=== PATIENT | female | born 1955 | race Caucasian/White ===

== ENCOUNTER 2016-10-11 13:20 | Emergency (ER) | payer MEDICARE, OTHER ==
[2016-10-11 13:21] VITALS: BMI 28.5
[2016-10-11 13:30] VITALS: BP 167/95; PULSE 87; RESP 20; TEMP 97.8; O2SAT 96
[2016-10-11] MEDS ORDERED: Lidocaine 5% Patch TD STA (13:49)
[2016-10-11] MEDS ORDERED: Lidocaine 5% Patch TD ONE (13:56)
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
== END 2016-10-11 14:35 | disposition home or self-care (01) ==
LOC: C.ER 13:20
DX: M54.5 Low back pain (principal); R07.89 Other chest pain; V43.62XA Car passenger injured in collision with other type car in traffic accident, initial encounter; Y92.410 Unspecified street and highway as the place of occurrence of the external cause
CPT/HCPCS: 71020; 72100; 96372; 99283; J1885

== ENCOUNTER 2017-02-28 01:37 | Emergency (ER) | payer MEDICARE, OTHER ==
[2017-02-28 01:37] VITALS: BMI 28.5
--- NOTE | 2017-02-28 01:58 | C.PDOC ---
History Of Present Illness patient states she felt her blood pressure was elevated , and wanted to be checked. No cp, palpitations, mild headache. 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 Speaking in complete sentences Time Seen by Provider: 02/28/17 01:58 Chief Complaint (Nursing): High Blood Pressure History/Exam Limitations: no limitations Onset/Duration Of Symptoms: Mins Current Symptoms Are (Timing): Better Associated Symptoms: denies: Chest Pain, Dyspnea Quality Of Symptoms: Asymptomatic Severity: Mild Pain Scale Rating Of: 2 Exacerbating Factor(s): Pos: None Recent travel outside of the [place]: No Additional History Per: Patient Past Medical History Reviewed: Historical Data, Nursing Documentation, Vital Signs Vital Signs: Last Vital Signs Temp 98.5 F 02/28/17 01:47 Pulse 86 02/28/17 02:14 Resp 18 02/28/17 02:14 BP 165/89 H 02/28/17 02:14 Pulse Ox 98 02/28/17 02:29 - Medical History PMH: Anxiety, Arthritis, Asthma, Gastritis, HTN, Hypercholesterolemia Denies: Chronic Kidney Disease Surgical History: Appendectomy Family History: States: No Known Family Hx, Unknown Family Hx - Social History Hx Tobacco Use: No Hx Alcohol Use: No Hx Substance Use: No - Immunization History Hx Tetanus Toxoid Vaccination: Yes Hx Influenza Vaccination: Yes Hx Pneumococcal Vaccination: Yes Review Of Systems Constitutional: Negative for: Fever, Chills Eyes: Negative for: Redness ENT: Negative for: Throat Pain Cardiovascular: Negative for: Chest Pain Respiratory: Negative for: Shortness of Breath Gastrointestinal: Negative for: Nausea, Vomiting Genitourinary: Negative for: Dysuria Musculoskeletal: Negative for: Back Pain Skin: Negative for: Rash Neurological: Positive for: Headache. Negative for: Weakness Psych: Negative for: Anxiety Physical Exam - Physical Exam Appears: Non-toxic, No Acute Distress Skin: Warm, Dry Head: Normacephalic Eye(s): bilateral: Normal Inspection Oral Mucosa: Moist Neck: Supple Chest: Symmetrical Cardiovascular: Rhythm Regular (dextrocaria) Respiratory: No Rales, No Rhonchi, No Wheezing Gastrointestinal/Abdominal: Soft, No Tenderness, No Distention Back: No CVA Tenderness Extremity: Normal ROM Extremity: Bilateral: Atraumatic Pulses: Left Dorsalis Pedis: Normal, Right Dorsalis Pedis: Normal Neurological/Psych: Oriented x3, Normal Speech, Normal Cognition Gait: Steady ED Course And Treatment - Laboratory Results Result Diagrams: 02/28/17 02:37 ECG: Interpreted By Me, Viewed By Me ECG Rhythm: Sinus Rhythm (79), R BBB, Nonspecific Changes O2 Sat by Pulse Oximetry: 98 Pulse Ox Interpretation: Normal - Radiology CXR: Interpreted by Me, Viewed By Me CXR Interpretation: No: Infiltrates, Fracture, Pnemothorax (dextrocaria) NIHSS Stroke Scale - Date/Time Evaluation Performed Date Performed: 02/28/17 Time Performed: 01:55 When Was NIHSS Performed: Baseline - How Severe is the Stoke Level of Consciousness: 0=Alert LOC to Questions: 0=Both comments correct LOC to commands: 0=Obeys both correctly Best Gaze: 0=Normal Visual: 0=No visual loss Facial: 0=Normal Motor Arm - Left: 0=No drift Motor Arm - Right: 0=No drift Motor Leg - Left: 0=No drift Motor Leg - Right: 0=No drift Limb Ataxia: 0=Absent Sensory: 0=Normal Best Language: 0=No aphasia Dysarthia: 0=Normal articulation Extinction & Inattention (Neglect): 0=Normal, no object Score: 0 Severity Of Stroke: 0= No Stroke Disposition Counseled Patient/Family Regarding: Studies Performed, Diagnosis, Need For Followup - Disposition Referrals: Tatiana Ash MD [Medical Doctor] - Disposition: HOME/ ROUTINE Disposition Time: 01:58 Condition: FAIR Additional Instructions: Please return if symptoms recur Instructions: Acute Headache (DC), Hypertension (DC) Forms: [employer]: [employer] (Bengali) Print Language: PANAMANIAN - Clinical Impression Clinical Impression: Hypertension, Headache
[2017-02-28 02:28] VITALS: O2SAT 98
[2017-02-28 02:42] LABS: BASO # 0.1 K/uL (0.0-0.2); EOS # 0.1 K/uL (0.0-0.7); EOS % 0.6 % (0.0-4.0); HEMATOCRIT 42.9 % (34.0-47.0); LYMPH # 2.6 K/uL (1.0-4.3); LYMPH % 23.6 % (20.0-40.0); MEAN CELL VOLUME 85.6 fL (81.0-99.0); MEAN CORPUSCULAR HEMOGLOBIN 28.3 pg (27.0-31.0); MEAN CORPUSCULAR HGB CONC 33.1 g/dL (33.0-37.0); MEAN PLATELET VOLUME 9.4 fL (7.2-11.7); MONO # 0.6 K/uL (0.0-0.8); MONO % 5.4 % (0.0-10.0); RED CELL DISTRIBUTION WIDTH 13.3 % (11.5-14.5); WHITE BLOOD COUNT 10.9 K/uL (4.8-10.8)
[2017-02-28 03:01] LABS: CHLORIDE 98 mmol/L (98-107)
[2017-02-28 03:02] LABS: SODIUM 137 mmol/L (132-148)
[2017-02-28 03:04] LABS: ALB/GLOB RATIO 1.1 (1.0-2.1); ALKALINE PHOSPHATASE 74 U/L (38-126); ALT/SGPT 45 U/L (9-52); AST/SGOT 30 U/L (14-36); BILIRUBIN,TOTAL 0.8 mg/dL (0.2-1.3); BLOOD UREA NITROGEN 25 mg/dL (7-17); CARBON DIOXIDE 23 mmol/L (22-30); GFR AFRICAN-AMERICAN > 60; TOTAL PROTEIN 7.8 g/dL (6.3-8.3)
[2017-02-28 03:05] LABS: CALCIUM 9.3 mg/dl (8.6-10.4); GLUCOSE,RANDOM 141 mg/dL (65-105)
[2017-02-28 05:32] VITALS: BP 149/89; PULSE 89; RESP 20; TEMP 98
--- NOTE | 2017-02-28 08:12 | RAD ---
HISTORY: hypertension, r/o pulm. path COMPARISON: Comparison is made to 10/11/2016 FINDINGS: LUNGS: Small opacities at the lung bases likely atelectasis. Mild pulmonary vascular congestion is also noted. PLEURA: No significant pleural effusion identified, no pneumothorax apparent. CARDIOVASCULAR: Dextrocardia is again noted. OSSEOUS STRUCTURES: No significant abnormalities. VISUALIZED UPPER ABDOMEN: Normal. OTHER FINDINGS: None. IMPRESSION: Small opacities at the lung bases may represent atelectasis. Mild pulmonary vascular congestion is noted. Otherwise no interval change.
--- NOTE | 2017-03-01 15:53 | CARD ---
APPROVED REPORT EKG Measurement Heart [id number] MN 152P [id number] <Conclusion> Probable reversal of limb leads. Please repeat
== END 2017-02-28 05:29 | disposition home or self-care (01) ==
LOC: SUPCPDRO 01:37 → C.ER 01:37
DX: I10 Essential (primary) hypertension (principal); R51 Headache
CPT/HCPCS: 71010; 80053; 84484; 85025; 93005; 96374; 99284; J1885

== ENCOUNTER 2017-03-27 18:50 | Emergency (ER) | payer MEDICARE ==
[2017-03-27 18:50] VITALS: BMI 28.5
[2017-03-27 20:06] LABS: BASO # 0.2 K/uL (0.0-0.2); BASO % 1.4 % (0.0-2.0); EOS # 0.1 K/uL (0.0-0.7); EOS % 0.8 % (0.0-4.0); HEMATOCRIT 39.2 % (34.0-47.0); LYMPH # 4.1 K/uL (1.0-4.3); LYMPH % 27.7 % (20.0-40.0); MEAN CELL VOLUME 84.9 fL (81.0-99.0); MEAN CORPUSCULAR HEMOGLOBIN 28.8 pg (27.0-31.0); MEAN CORPUSCULAR HGB CONC 33.9 g/dL (33.0-37.0); MEAN PLATELET VOLUME 8.8 fL (7.2-11.7); MONO # 1.3 K/uL (0.0-0.8); RED CELL DISTRIBUTION WIDTH 12.7 % (11.5-14.5); WHITE BLOOD COUNT 14.8 K/uL (4.8-10.8)
[2017-03-27 20:19] LABS: CHLORIDE 98 mmol/L (98-107); POTASSIUM 3.6 mmol/L (3.6-5.2); SODIUM 132 mmol/L (132-148)
[2017-03-27 20:21] LABS: AST/SGOT 27 U/L (14-36); BILIRUBIN,TOTAL 0.8 mg/dL (0.2-1.3); CARBON DIOXIDE 23 mmol/L (22-30); GFR AFRICAN-AMERICAN > 60
[2017-03-27 20:22] LABS: ALB/GLOB RATIO 1.3 (1.0-2.1); ALKALINE PHOSPHATASE 80 U/L (38-126); ALT/SGPT 38 U/L (9-52); BLOOD UREA NITROGEN 27 mg/dL (7-17); CALCIUM 8.7 mg/dl (8.6-10.4); GLUCOSE,RANDOM 104 mg/dL (65-105); TOTAL PROTEIN 6.9 g/dL (6.3-8.3)
[2017-03-27 21:16] VITALS: BP 119/75; PULSE 72; RESP 22; TEMP 98; O2SAT 96
--- NOTE | 2017-03-28 01:00 | C.PDOC ---
History Of Present Illness 61 y/o female presents to ED with complaints of reproducible right side chest pain since early this morning worse with deep breathing or movement. Patient also complaints of mild non productive cough and denies sob, fever, recent travel, sick contacts or any other complaints at this time. Chief Complaint (Nursing): Chest Pain History Per: Patient History/Exam Limitations: no limitations Onset/Duration Of Symptoms: Hrs Current Symptoms Are (Timing): Still Present Quality: "Pain" Past Medical History Reviewed: Historical Data, Nursing Documentation, Vital Signs Vital Signs: Last Vital Signs Temp 98 F 03/27/17 21:16 Pulse 72 03/27/17 21:16 Resp 22 03/27/17 21:16 BP 119/75 03/27/17 21:16 Pulse Ox 96 03/28/17 01:16 - Medical History PMH: Anxiety, Arthritis, Asthma, Gastritis, HTN, Hypercholesterolemia Denies: Chronic Kidney Disease Surgical History: Appendectomy Family History: States: No Known Family Hx - Social History Hx Tobacco Use: No Hx Alcohol Use: No Hx Substance Use: No - Immunization History Hx Tetanus Toxoid Vaccination: No Hx Influenza Vaccination: No Hx Pneumococcal Vaccination: No Review Of Systems Constitutional: Negative for: Fever, Chills Cardiovascular: Positive for: Chest Pain Respiratory: Positive for: Cough. Negative for: Shortness of Breath Gastrointestinal: Negative for: Nausea, Vomiting Skin: Negative for: Rash Physical Exam - Physical Exam Appears: Non-toxic, No Acute Distress Skin: Normal Color, Warm, Dry, No Rash Head: Atraumatic, Normacephalic Oral Mucosa: Moist Neck: Normal ROM, Supple Chest: Symmetrical, Tenderness (right chest wall increased with right arm movement) Cardiovascular: Other (right sided heart sounds) Respiratory: Normal Breath Sounds, No Rales, No Rhonchi, No Wheezing Gastrointestinal/Abdominal: Soft, No Tenderness, No Guarding, No Rebound Neurological/Psych: Oriented x3 ED Course And Treatment - Laboratory Results Result Diagrams: 03/27/17 20:02 03/27/17 20:02 ECG: Interpreted By Me, Viewed By Me ECG Rhythm: Sinus Rhythm Interpretation Of ECG: Incomplete RBBB Rate From EC (bpm) O2 Sat by Pulse Oximetry: 96 (RA) Medical Decision Making Medical Decision Making: On Re-eval patient feeling better and discharged Disposition - Disposition Referrals: [facility] Jame Kim, [Non-Staff] - Disposition: HOME/ ROUTINE Disposition Time: 20:45 Condition: GOOD Additional Instructions: Thank you for letting us take care of you today. Your provider was Dr. Moctezuma. You were treated for cough and noncardiac chest pain. The emergency medical care you received today was directed at your acute symptoms. If you were prescribed any medication, please fill it and take as directed. It may take several days for your symptoms to resolve. Return to the Emergency Department if your symptoms worsen, do not improve, or if you have any other problems. Please contact your doctor or call one of the physicians/clinics you have been referred to that are listed on the Patient Visit Information form that is included in your discharge packet. Bring any paperwork you were given at discharge with you along with any medications you are taking to your follow up visit. Our treatment cannot replace ongoing medical care by a primary care provider (PCP) outside of the emergency department. Thank you for allowing the [facility] team to be part of your care today. Follow up with your doctor in 2-3 days for re-evaluation and further management. Sandy por dejarnos atenderlo erendira. Berry proveedor fue el Dr. Moctezuma. Usted recibi tratamiento para la tos y el dolor en el pecho no cardaco. La atencin mdica de emergencia que recibi hoy estaba dirigida a teodora sntomas agudos. Si le prescribieron algn medicamento, llnelo y tome segn las indicaciones. Teodora s ntomas pueden tardar varios ferguson en resolverse. Regrese al Departamento de Emergencia si teodora sntomas empeoran, no mejoran o si tiene algn otro problema. Comunquese con berry mdico o llame a rod de los mdicos / clnicas a los que egan sido referido que figura en el formulario de Informacin de visita del paciente que se incluye en berry paquete de criss. Traiga todos los documentos que recibi al momento del criss junto con los medicamentos que est tomando en berry visita de seguimiento. Nuestro tratamiento no puede reemplazar la atencin mdica en curso por parte de un proveedor de atencin primaria (PCP) fuera del departamento de emergencias. Sandy por permitir que el equipo de [facility] sea parte de berry cuidado hoy. Fran un seguimiento con berry mdico en 2-3 ferguson para nate reevaluacin y nate administracin posterior. Prescriptions: Azithromycin [Zithromax] 250 mg PO DAILY #6 tab Ibuprofen [Motrin] 600 mg PO Q6 PRN #20 tab PRN Reason: Pain, Moderate (4-7) Forms: Gen Discharge Inst Tajik Print Language: LAO - Clinical Impression Clinical Impression: Chest wall pain - Scribe Statement The provider has reviewed the documentation as recorded by the Scribbertrand Langford All medical record entries made by the Scribe were at my direction and personally dictated by me. I have reviewed the chart and agree that the record accurately reflects my personal performance of the history, physical exam, medical decision making, and the department course for this patient. I have also personally directed, reviewed, and agree with the discharge instructions and disposition.
--- NOTE | 2017-03-28 08:17 | RAD ---
HISTORY: chest pain COMPARISON: Numerous prior chest x-rays, the most recent chest x-ray performed 02/28/17 TECHNIQUE: Chest, one view. FINDINGS: Examination limited by habitus. LUNGS: Mild bibasilar atelectasis. Please note that chest x-ray has limited sensitivity for the detection of pulmonary masses. PLEURA: No significant pleural effusion identified. No definite pneumothorax . CARDIOVASCULAR: Dextrocardia. Atherosclerotic calcifications of the aortic knob. OSSEOUS STRUCTURES: Degenerative changes of the spine and shoulders. Calcific tendinitis bilaterally. VISUALIZED UPPER ABDOMEN: Unremarkable. OTHER FINDINGS: None. IMPRESSION: Dextrocardia. Mild bibasilar atelectasis
--- NOTE | 2017-03-28 23:45 | CARD ---
APPROVED REPORT EKG Measurement Heart [id number] NH 156P [id number] <Conclusion> Normal sinus rhythm Right superior axis deviation Incomplete right bundle branch block Right ventricular hypertrophy Septal infarct, age undetermined Inferior infarct, age undetermined Abnormal ECG
== END 2017-03-27 21:20 | disposition home or self-care (01) ==
LOC: C.ER 18:50
DX: R07.89 Other chest pain (principal); E78.00 Pure hypercholesterolemia, unspecified; I10 Essential (primary) hypertension
CPT/HCPCS: 71010; 80053; 84484; 85025; 93005; 96374; 99285; J1885

== ENCOUNTER 2017-07-12 11:31 | Inpatient (IN) | payer MEDICARE ==
[2017-07-12 11:32] VITALS: BMI 28.5
[2017-07-12] MEDS ORDERED: Sodium Chloride 0.9% 1,000 ML IV ONE ×2 (12:09→16:07)
--- NOTE | 2017-07-12 12:13 | C.PDOC ---
History Of Present Illness 61 yo female come in for evaluation of malaise, bodyaches, dry cough, low grade fever developed for past 8 days. Pt sts, for past 3 days developed watery diarrhea associated with epigastric discomfort, decrease appetite. Otherwise, pt denies high fever, headache, dizziness, CP, SOB, dyspnea, diaphoresis, palpitation, vomiting, melena, hematoschezia, back pain, UTI sx. Ambulate to ED for evaluation, not in any apparent distress. Time Seen by Provider: 07/12/17 11:54 Chief Complaint (Nursing): Flu-like Symptoms History Per: Patient History/Exam Limitations: no limitations Onset/Duration Of Symptoms: Days Current Symptoms Are (Timing): Still Present Past Medical History Reviewed: Historical Data, Nursing Documentation, Vital Signs Vital Signs: Last Vital Signs Temp 97.9 F 07/13/17 15:09 Pulse 96 H 07/13/17 15:09 Resp 20 07/13/17 15:09 BP 122/81 07/13/17 15:09 Pulse Ox 94 L 07/13/17 15:09 - Medical History PMH: Anxiety, Arthritis, Asthma, Gastritis, HTN, Hypercholesterolemia Denies: Chronic Kidney Disease Surgical History: Appendectomy Family History: States: No Known Family Hx - Social History Hx Tobacco Use: No Hx Alcohol Use: No Hx Substance Use: No - Immunization History Hx Tetanus Toxoid Vaccination: No Hx Influenza Vaccination: No Hx Pneumococcal Vaccination: No Review Of Systems Constitutional: Positive for: Fever (low-grade), Weakness, Malaise. Negative for: Chills Cardiovascular: Negative for: Chest Pain, Palpitations Respiratory: Positive for: Cough. Negative for: Shortness of Breath, Sputum Gastrointestinal: Positive for: Abdominal Pain, Diarrhea. Negative for: Nausea , Vomiting, Hematochezia, Hematemesis Genitourinary: Negative for: Dysuria, Frequency, Vaginal Bleeding Musculoskeletal: Negative for: Back Pain Neurological: Negative for: Weakness, Numbness, Dizziness Physical Exam - Physical Exam Appears: Well, No Acute Distress Skin: Normal Color, Warm, Dry, No Rash Head: Atraumatic, Normacephalic Eye(s): bilateral: PERRL Nose: No Flaring, No Discharge Oral Mucosa: Moist, No Drooling Tongue: Normal Appearing Lips: Normal Appearing Throat: No Erythema, No Drooling Neck: Trachea Midline, Supple Cardiovascular: Rhythm Regular, No Murmur, No JVD Respiratory: No Decreased Breath Sounds, No Accessory Muscle Use, No Stridor, No Wheezing Gastrointestinal/Abdominal: Soft, Tenderness (mild epigastric), No Distention, No Guarding, No Rebound Back: No CVA Tenderness Extremity: Normal ROM, No Deformity, No Swelling Neurological/Psych: Oriented x3, Normal Speech ED Course And Treatment - Laboratory Results Result Diagrams: 07/13/17 03:59 07/13/17 19:30 Lab Interpretation: Abnormal ECG: Interpreted By Me, Viewed By Me ECG Interpretation: Abnormal Interpretation Of ECG: SR@77/min, RAD,RCH,Qwave V2-3, T wave inversion anterolate, no acute ST-T changes. Comparew/old study from 03/27/17, no new changes. - Other Rad CXR X-Ray: Read By Radiologist Interpretation: FINDINGS: LUNGS: Small opacity at the right costophrenic angle may be exaggerated by soft tissue attenuation however small pleural effusion or consolidation is not excluded. Mild bibasilar atelectasis. No definite pneumothorax. Please note that chest x-ray has limited sensitivity for the detection of pulmonary masses. CARDIOVASCULAR: Dextro cardia. Atherosclerotic calcifications of the aorta. OSSEOUS STRUCTURES: Degenerative changes. VISUALIZED UPPER ABDOMEN: Unremarkable. OTHER FINDINGS: None. IMPRESSION: Small opacity at the right costophrenic angle may be exaggerated by soft tissue attenuation however small pleural effusion or consolidation is not excluded. Mild bibasilar atelectasis. Dextrocardia. Disposition - Disposition Disposition: HOSPITALIZED Disposition Time: 14:20 Condition: STABLE - Clinical Impression Clinical Impression: Pneumonia, Dehydration
[2017-07-12 12:43] LABS: BASO # 0.1 K/uL (0.0-0.2); BASO % 0.6 % (0.0-2.0); HEMOGLOBIN 13.5 g/dL (11.0-16.0); LYMPH # 3.1 K/uL (1.0-4.3); LYMPH % 22.1 % (20.0-40.0); MEAN CELL VOLUME 84.1 fL (81.0-99.0); MEAN CORPUSCULAR HEMOGLOBIN 28.9 pg (27.0-31.0); MEAN CORPUSCULAR HGB CONC 34.3 g/dL (33.0-37.0); MEAN PLATELET VOLUME 8.6 fL (7.2-11.7); MONO # 1.5 K/uL (0.0-0.8); NEUT # 9.2 K/uL (1.8-7.0); NEUT % 66.3 % (50.0-75.0); RBC 4.69 Mil/uL (3.80-5.20); RED CELL DISTRIBUTION WIDTH 12.7 % (11.5-14.5); WHITE BLOOD COUNT 13.8 K/uL (4.8-10.8)
--- NOTE | 2017-07-12 12:44 | RAD ---
HISTORY: abd pain COMPARISON: Chest x-ray performed 03/27/17 TECHNIQUE: Chest PA and lateral FINDINGS: LUNGS: Small opacity at the right costophrenic angle may be exaggerated by soft tissue attenuation however small pleural effusion or consolidation is not excluded. Mild bibasilar atelectasis. No definite pneumothorax. Please note that chest x-ray has limited sensitivity for the detection of pulmonary masses. CARDIOVASCULAR: Dextro cardia. Atherosclerotic calcifications of the aorta. OSSEOUS STRUCTURES: Degenerative changes. VISUALIZED UPPER ABDOMEN: Unremarkable. OTHER FINDINGS: None. IMPRESSION: Small opacity at the right costophrenic angle may be exaggerated by soft tissue attenuation however small pleural effusion or consolidation is not excluded. Mild bibasilar atelectasis. Dextrocardia.
[2017-07-12 13:05] LABS: SQUAMOUS EPITHIAL 1 /hpf (0-5); URINE BACTERIA RARE (<OCC); URINE BILIRUBIN NEGATIVE (NEGATIVE); URINE BLOOD NEGATIVE (NEGATIVE); URINE CLARITY Hazy (Clear); URINE GLUCOSE (UA) NORMAL (Normal); URINE LEUKOCYTE ESTERASE NEG Leu/uL (Negative); URINE NITRATE NEGATIVE (NEGATIVE); URINE PROTEIN 2+ mg/dL (NEGATIVE)
[2017-07-12] MEDS ORDERED: Sodium Chloride 0.9% 1,000 ML ONE (13:07)
[2017-07-12 13:25] LABS: URINE COLOR YELLOW (YELLOW)
[2017-07-12 13:43] LABS: ALBUMIN 3.6 g/dL (3.5-5.0); CALCIUM 8.3 mg/dl (8.6-10.4)
[2017-07-12 13:55] LABS: TROPONIN I 0.012 ng/mL (0.00-0.120)
[2017-07-12] MEDS ORDERED: Albuterol 0.083% Inhal Sol (2.5 mg/3 mL) UD IH STA (14:37)
[2017-07-12] MEDS ORDERED: Albuterol 0.083% Inhal Sol (2.5 mg/3 mL) UD ONE ×2 (14:57→22:58)
--- NOTE | 2017-07-12 19:42 | CP.PCM.PN ---
Subjective - Date & Time of Evaluation Date of Evaluation: 07/12/17 Time of Evaluation: 07:00 - Subjective Subjective: Patient is seen and examined at bedside. H&P dictated #[id number] Objective - Vital Signs/Intake and Output Vital Signs (last 24 hours): Temp Pulse Resp BP Pulse Ox 98.3 F 90 20 129/80 95 07/12/17 17:00 07/12/17 17:00 07/12/17 17:00 07/12/17 17:00 07/12/17 17:00 - Medications Medications: Current Medications Sodium Chloride (Sodium Chloride 0.9%) 1,000 mls @ 120 mls/hr IV .[id number] ONE Stop: 07/13/17 00:26 Last Admin: 07/12/17 16:33 Dose: 120 mls/hr - Labs Labs: 07/12/17 12:34 07/12/17 13:21
[2017-07-12] MEDS: Sodium Chloride 0.9% 1,000 ML IV SCH (20:00)
[2017-07-12] MEDS: Azithromycin 500 MG in Sodium Chloride 0.9% 250 ML IVPB SCH (23:01)
[2017-07-12 23:22] LABS: PROTHROMBIN TIME 11.2 SECONDS (9.7-12.2)
--- NOTE | 2017-07-13 01:29 | CT ---
EXAM: CT Chest Without Intravenous Contrast CLINICAL HISTORY: 61 years old, female; Signs and symptoms; Shortness of breath; Additional info: R/O pneumonia TECHNIQUE: Axial computed tomography images of the chest without intravenous contrast. All CT scans at this facility use one or more dose reduction techniques, viz.: automated exposure control; ma/kV adjustment per patient size (including targeted exams where dose is matched to indication; i.e. head); or iterative reconstruction technique. Coronal and sagittal reformatted images were created and reviewed. COMPARISON: No relevant prior studies available. FINDINGS: Limitations: Lack of intravenous contrast. Motion artifact - mild. Lungs: Mild atelectasis/scarring. Small consolidation with associated volume loss within right lower lobe. Minimal consolidation with associated volume loss within left lower lobe. Mild mucous plugging within lower lobe bronchi. Mild scattered reticulonodular opacities. Pleural space: No pneumothorax. No significant effusion. Heart: No cardiomegaly. Trace pericardial effusion. Coronary artery calcifications. Bones/joints: Degenerative changes of spine. No acute fracture. Soft tissues: Unremarkable. Vasculature: Mild atherosclerotic disease. No aneurysm. Lymph nodes: No pathologically enlarged lymph nodes. Liver: Fatty infiltration. Other findings: Situs inversus. IMPRESSION: 1. Reticulonodular opacities, nonspecific. Consider inflammatory, infectious, or less likely neoplastic etiologies. 2. Bibasilar atelectasis, right greater than left. Superimposed pneumonia not excluded. 3. Incidental/non-acute findings are described above.
[2017-07-13 04:04] LABS: HEMOGLOBIN 11.6 g/dL (11.0-16.0)
[2017-07-13 04:07] LABS: BASO % 0.4 % (0.0-2.0); EOS % 0.1 % (0.0-4.0); LYMPH # 3.9 K/uL (1.0-4.3); LYMPH % 31.1 % (20.0-40.0); MEAN CELL VOLUME 83.8 fL (81.0-99.0); MEAN CORPUSCULAR HEMOGLOBIN 28.4 pg (27.0-31.0); MEAN CORPUSCULAR HGB CONC 33.8 g/dL (33.0-37.0); MEAN PLATELET VOLUME 8.1 fL (7.2-11.7); MONO # 1.2 K/uL (0.0-0.8); MONO % 9.7 % (0.0-10.0); NEUT # 7.3 K/uL (1.8-7.0); NEUT % 58.7 % (50.0-75.0); RBC 4.09 Mil/uL (3.80-5.20); RED CELL DISTRIBUTION WIDTH 13.2 % (11.5-14.5); WHITE BLOOD COUNT 12.4 K/uL (4.8-10.8)
[2017-07-13 04:17] LABS: ALB/GLOB RATIO 0.9 (1.0-2.1); ALT/SGPT 55 U/L (9-52); AST/SGOT 49 U/L (14-36); BLOOD UREA NITROGEN 18 mg/dL (7-17); GFR AFRICAN-AMERICAN > 60; GFR NON-AFRICAN AMERICAN 50; HDL CHOLESTEROL 22 mg/dL (30-70)
[2017-07-13 04:24] LABS: LDL CHOLESTEROL 89 mg/dL (0-129)
[2017-07-13] MEDS: Albuterol-Ipratrop 3 mg / 0.5 (3 ml) UD INH SCH ×4 (05:58→19:03)
--- NOTE | 2017-07-13 08:52 | HP ---
CHIEF COMPLAINT: History of fever, cold, diarrhea, weakness, and dizziness HISTORY OF PRESENT ILLNESS: Ms. Rg is a 61-year-old female with past medical history of arthritis, hypertension, vertigo, gastritis, asthma who has been following up with Dr. Ash as primary care physician, came into the ED with complaints of more than 1 week history of feeling weak, dizzy, cold, headache. She did not go to her primary care physician as her symptoms are getting worse, came into the emergency room. Denied any chest pain. Denied any shortness of breath. Denied any wheezing. Denied any nausea, vomiting, abdominal pain, diarrhea, or constipation. Denies any other neurologic symptoms. PAST MEDICAL HISTORY: As described, hypertension, arthritis, asthma, gastritis, and vertigo. PAST SURGICAL HISTORY: Underwent appendectomy and right foot surgery. FAMILY HISTORY: Coronary artery disease in the mother who at age 76. PERSONAL HISTORY: She is . Living with her . Not having any children. She is not working. SOCIAL HISTORY: Denies smoking, alcohol, or drug abuse. ALLERGIES: SHE IS ALLERGIC TO PERCOCET. MEDICATIONS: Include atenolol 50 mg daily, prednisone 5 mg daily, valsartan 160 mg daily, meclizine as needed. REVIEW OF SYSTEMS: As described in the history of present illness. All other systems reviewed and were found to be negative. PHYSICAL EXAMINATION GENERAL: Middle aged female, lying in bed, in no acute distress. VITAL SIGNS: Blood pressure 129/73, pulse 93, respirations 20, temperature 98.1 degrees Fahrenheit, O2 saturation 95% on room air. HEENT: Pupils are equal, round, and reactive to light and accommodation. Extraocular muscles are intact. No icterus. No pallor. No oral thrush. Positive pharyngeal congestion. NECK: Supple. No JVD. LUNGS: Bilateral vesicular breath sounds. Bilateral basal rhonchi heard. CVS: S1, S2 present. Regular. ABDOMEN: Soft and nontender. Bowel sounds present. No guarding. No rigidity. No rebound tenderness noted. SOCIAL WORKER DELINQUENCY PREVENTION: Alert, awake, and oriented x 3. No focal deficits noted. EXTREMITIES: No edema. Palpable peripheral pulses. LABORATORY DATA: Her chest x-ray shows small opacity at the right costophrenic angle. Small pleural effusion. The consolidation is not excluded. Mild bibasilar atelectasis. Dextrocardia. EKG consistent with normal sinus rhythm at [address]-T wave abnormality. WBC 13.3, hemoglobin 13.5, hematocrit 39.4, platelets 267. Sodium 127, potassium 3.7, chloride 88, bicarbonate 29, BUN 29, creatinine 1.5, glucose 116, calcium 8.3, total bilirubin 0.6, AST 71, ALT 53, alkaline phosphatase 50, troponin 0.0120. Protein 7.2, albumin 3.6. UA: Specific gravity 1.019, pH 5.0, protein 2 +, urobilinogen 2+, wbc 12, influenza A and B negative. ASSESSMENT AND PLAN: Middle-aged female with history of asthma, arthritis, gastritis, vertigo, hypertension, admitted for 1-week history of generalized weakness, dizziness, cold, headache with questionable infiltrate on chest x-ray and the patient is being admitted for further management. 1. Flu-like symptoms, with likely elevated white blood cells and normal chest x-ray. Rule out infiltrate. Rule out pneumonia. 2. History of asthma. 3. History of hypertension. 4. History of arthritis. 5. History of vertigo. 6. History of gastritis. PLAN: The patient is being admitted to hospital. Continue with her home medications. The patient received Rocephin in the emergency room and will continue with Rocephin 1 g IV daily and Zithromax 500 mg IV daily. Continue with nebulizer treatments. Continue with prednisone. Give Pepcid for GI prophylaxis. Give gentle hydration. We will check CT of the chest for definitive diagnosis of pneumonia versus bronchitis. Culture sent from the ED, we will do mycoplasma and legionella. We will repeat labs in the morning. We will do the serial troponins. We will repeat EKG in the morning. We will add further recommendation as her clinical course progresses. Nehemias Michel MD
--- NOTE | 2017-07-13 14:16 | CP.PCM.PN ---
Subjective - Date & Time of Evaluation Date of Evaluation: 07/13/17 Time of Evaluation: 11:45 - Subjective Subjective: Progress note dictated #[id number] Objective - Vital Signs/Intake and Output Vital Signs (last 24 hours): Temp Pulse Resp BP Pulse Ox 98.1 F 89 20 138/84 96 07/13/17 08:30 07/13/17 08:30 07/13/17 08:30 07/13/17 08:30 07/13/17 08:30 Intake and Output: 07/13/17 07/13/17 06:59 18:59 Intake Total 300 Balance 300 - Medications Medications: Current Medications Albuterol/Ipratropium (Duoneb 3 Mg/0.5 Mg (3 Ml) Ud) 3 ml INH RQ6 [facility] Last Admin: 07/13/17 05:58 Dose: 3 ml Famotidine (Pepcid) 20 mg PO DAILY [facility] Last Admin: 07/13/17 09:52 Dose: 20 mg Heparin Sodium (Porcine) (Heparin) 5,000 units SC Q8 [facility] Last Admin: 07/13/17 13:44 Dose: 5,000 units Azithromycin 500 mg/ Sodium (Chloride) 250 mls @ 250 mls/hr IVPB Q24H [facility] Last Admin: 07/12/17 23:01 Dose: 250 mls/hr Ceftriaxone Sodium 1 gm/ (Sodium Chloride) 100 mls @ 100 mls/hr IVPB DAILY@ 1630 [facility] Sodium Chloride (Sodium Chloride 0.9%) 1,000 mls @ 50 mls/hr IV .Q20H [facility] Last Admin: 07/12/17 20:00 Dose: 50 mls/hr Prednisone (Prednisone Tab) 5 mg PO DAILY [facility] Last Admin: 07/13/17 09:52 Dose: 5 mg Rosuvastatin Calcium (Crestor) 5 mg PO HS [facility] Last Admin: 07/12/17 23:01 Dose: 5 mg - Labs Labs: 07/13/17 03:59 07/13/17 03:59 PT 11.2 SECONDS (9.7-12.2) 07/12/17 23:14 INR 1.0 07/12/17 23:14
[2017-07-13] MEDS: guaiFENesin DM 200 mg-20 mg/10 ml UD PO PRN (17:30)
[2017-07-13] MEDS: Sodium Chloride 0.9% 1,000 ML IV SCH (17:32)
[2017-07-13 19:56] LABS: BLOOD UREA NITROGEN 11 mg/dL (7-17); CALCIUM 7.9 mg/dl (8.6-10.4); GFR AFRICAN-AMERICAN > 60; GFR NON-AFRICAN AMERICAN > 60
[2017-07-13] MEDS: Azithromycin 500 MG in Sodium Chloride 0.9% 250 ML IVPB SCH (21:49)
--- NOTE | 2017-07-14 00:37 | PN ---
DATE: 07/13/2017. SUBJECTIVE: The patient is seen and examined at bedside. The patient is still complaining of cough and shortness of breath, but slightly better than yesterday. Denies any other new complaints. PHYSICAL EXAMINATION: GENERAL: Middle aged female, lying in bed, in no acute distress. VITAL SIGNS: Blood pressure 138/84, pulse 89, respirations 20, temperature 98.1 degrees Fahrenheit, O2 saturation 96% on 2 L nasal cannula. HEENT: Pupils are equal, round, and reactive to light and accommodation. Extraocular muscles are intact. No icterus. No pallor. NECK: Supple. No JVD. LUNGS: Bilateral vesicular breath sounds. Bilateral basal rhonchi heard. CVS: S1, S2 present. Regular. ABDOMEN: Soft and nontender. Bowel sounds present. No guarding. No rigidity. No rebound tenderness noted. MINE SAFETY ENGINEER: Alert, awake, and oriented x3. No focal deficits noted. EXTREMITIES: No edema. MEDICATIONS: Include Duoneb, azithromycin 500 mg daily, Rocephin 1 gm daily, Pepcid 20 mg daily, heparin 5000 units subcutaneously q. 8 hours, prednisone 5 mg daily, Crestor 5 mg p.o. at bedtime, IV fluids 30 mL an hour. LABORATORY DATA: From this morning WBC 12.4, hemoglobin 11.6, hematocrit 34.3, platelets 229. Sodium 134, potassium 3.0, chloride 99, bicarbonate 27, BUN 18, creatinine 1.1, glucose 86, hemoglobin A1c 6.8, calcium 8.0, magnesium 1.8. AST 49, ALT 55, alkaline phosphatase 48. Cardiac enzymes x3 negative. Triglycerides 101, cholesterol 126, LDL 89, HDL 22. Influenza A and B negative. Chest CT consistent with radicular nodular opacities nonspecific, consider inflammatory, infectious or less likely nonneoplastic etiologies, bibasilar atelectases right greater than left. ASSESSMENT AND PLAN: A middle-aged female admitted with history of hypertension, arthritis, asthma, gastritis, vertigo, admitted for possible pneumonia with flu-like symptoms. Flu is negative. We will continue with Rocephin and Zithromax. Continue with nebulizer treatments. Legionella and mycoplasma results pending, we looked in Pulmonary consult. We will continue with other current medications. We will add further recommendation as her clinical course progresses. Nehemias Michel MD [facility] # [id number]
[2017-07-14] MEDS: Albuterol-Ipratrop 3 mg / 0.5 (3 ml) UD INH SCH ×3 (01:48→20:01)
[2017-07-14] MEDS: guaiFENesin DM 200 mg-20 mg/10 ml UD PO PRN (03:38)
[2017-07-14] MEDS: Sodium Chloride 0.9% 1,000 ML IV SCH ×2 (10:45→22:10)
--- NOTE | 2017-07-14 11:11 | CP.PCM.PN ---
Subjective - Date & Time of Evaluation Date of Evaluation: 07/14/17 Time of Evaluation: 11:15 - Subjective Subjective: Progress note dictated # [id number] Objective - Vital Signs/Intake and Output Vital Signs (last 24 hours): Temp Pulse Resp BP Pulse Ox 97.9 F 81 20 140/90 96 07/14/17 07:55 07/14/17 07:55 07/14/17 07:55 07/14/17 07:55 07/14/17 07:55 Intake and Output: 07/14/17 07/14/17 06:59 18:59 Intake Total 1500 Balance 1500 - Medications Medications: Current Medications Albuterol/Ipratropium (Duoneb 3 Mg/0.5 Mg (3 Ml) Ud) 3 ml INH RQ6 [facility] Last Admin: 07/14/17 01:48 Dose: Not Given Famotidine (Pepcid) 20 mg PO DAILY [facility] Last Admin: 07/14/17 09:30 Dose: 20 mg Guaifenesin/Dextromethorphan (Robitussin Dm) 10 ml PO Q6H PRN PRN Reason: Cough and congestion Last Admin: 07/14/17 03:38 Dose: 10 ml Heparin Sodium (Porcine) (Heparin) 5,000 units SC Q8 [facility] Last Admin: 07/14/17 06:04 Dose: 5,000 units Azithromycin 500 mg/ Sodium (Chloride) 250 mls @ 250 mls/hr IVPB Q24H [facility] Last Admin: 07/13/17 21:49 Dose: 250 mls/hr Ceftriaxone Sodium 1 gm/ (Sodium Chloride) 100 mls @ 100 mls/hr IVPB DAILY@ 1630 [facility] Last Admin: 07/13/17 17:33 Dose: 100 mls/hr Sodium Chloride (Sodium Chloride 0.9%) 1,000 mls @ 50 mls/hr IV .Q20H [facility] Last Admin: 07/14/17 10:45 Dose: 50 mls/hr Prednisone (Prednisone Tab) 5 mg PO DAILY [facility] Last Admin: 07/14/17 09:30 Dose: 5 mg Rosuvastatin Calcium (Crestor) 5 mg PO HS [facility] Last Admin: 07/13/17 21:50 Dose: 5 mg - Labs Labs: 07/13/17 03:59 07/13/17 19:30 PT 11.2 SECONDS (9.7-12.2) 07/12/17 23:14 INR 1.0 07/12/17 23:14
--- NOTE | 2017-07-14 14:43 | CARD ---
APPROVED REPORT EKG Measurement Heart [id number] MI 162P [id number] <Conclusion> Normal sinus rhythm Right superior axis deviation Right ventricular hypertrophy Septal infarct, age undetermined Inferior infarct, age undetermined ST & T wave abnormality, consider anterolateral ischemia Abnormal ECG
--- NOTE | 2017-07-14 15:55 | CP.PCM.CON ---
History of Present Illness - History of Present Illness History of Present Illness: Patient is a 61 y/o female with PMHx of asthma, htn, vertigo, and anxiety presented to the ER with roughly 9 days of fevers, chills, body aches, headaches and dizziness. Patient denies any chest pain, shortness of breath and wheezing. Patient came from home and denies recent hospital stays. Denies similar episodes. Denies any known sick contacts. Review of Systems - Review of Systems All systems: reviewed and no additional remarkable complaints except ( complaining of cough) Past Patient History - Infectious Disease Hx of Infectious Diseases: None - Past Medical History & Family History Past Medical History?: Yes - Past Social History Smoking Status: Never Smoked - CARDIAC Hx Hypercholesterolemia: Yes Hx Hypertension: Yes - PULMONARY Hx Asthma: Yes - NEUROLOGICAL Hx Neurological Disorder: Yes Hx Vertigo: Yes - HEENT Hx HEENT Problems: Yes Other/Comment: vertigo some hearing loss sometimes throat swells - RENAL Hx Chronic Kidney Disease: No - ENDOCRINE/METABOLIC Hx Endocrine Disorders: No - HEMATOLOGICAL/ONCOLOGICAL Hx Blood Disorders: No - INTEGUMENTARY Hx Dermatological Problems: No - MUSCULOSKELETAL/RHEUMATOLOGICAL Hx Arthritis: Yes - GASTROINTESTINAL Hx Gastritis: Yes - GENITOURINARY/GYNECOLOGICAL Hx Genitourinary Disorders: No - PSYCHIATRIC Hx Anxiety: Yes Hx Substance Use: No - SURGICAL HISTORY Hx Appendectomy: Yes - ANESTHESIA Hx Anesthesia: Yes Hx Anesthesia Reactions: Yes Hx Malignant Hyperthermia: No Meds Allergies/Adverse Reactions: Allergies Allergy/AdvReac Type Severity Reaction Status Date / Time acetaminophen [From Percocet] Allergy Severe ANAPHYLAXIS Verified 07/12/17 11:41 oxycodone [From Percocet] Allergy Severe ANAPHYLAXIS Verified 07/12/17 11:41 shrimp Allergy Severe SWELLING Verified 07/12/17 11:41 - Medications Medications: Current Medications Albuterol/Ipratropium (Duoneb 3 Mg/0.5 Mg (3 Ml) Ud) 3 ml INH RQ6 [facility] Last Admin: 07/14/17 13:31 Dose: 3 ml Atenolol (Tenormin) 50 mg PO DAILY [facility] Famotidine (Pepcid) 20 mg PO DAILY [facility] Last Admin: 07/14/17 09:30 Dose: 20 mg Guaifenesin/Dextromethorphan (Robitussin Dm) 10 ml PO Q6H PRN PRN Reason: Cough and congestion Last Admin: 07/14/17 03:38 Dose: 10 ml Heparin Sodium (Porcine) (Heparin) 5,000 units SC Q8 [facility] Last Admin: 07/14/17 13:58 Dose: 5,000 units Azithromycin 500 mg/ Sodium (Chloride) 250 mls @ 250 mls/hr IVPB Q24H [facility] Last Admin: 07/13/17 21:49 Dose: 250 mls/hr Ceftriaxone Sodium 1 gm/ (Sodium Chloride) 100 mls @ 100 mls/hr IVPB DAILY@ 1630 [facility] Last Admin: 07/13/17 17:33 Dose: 100 mls/hr Sodium Chloride (Sodium Chloride 0.9%) 1,000 mls @ 50 mls/hr IV .Q20H [facility] Last Admin: 07/14/17 10:45 Dose: 50 mls/hr Losartan Potassium (Cozaar) 100 mg PO DAILY [facility] Prednisone (Prednisone Tab) 5 mg PO DAILY [facility] Last Admin: 07/14/17 09:30 Dose: 5 mg Rosuvastatin Calcium (Crestor) 5 mg PO HS [facility] Last Admin: 07/13/17 21:50 Dose: 5 mg Physical Exam - Head Exam Head Exam: ATRAUMATIC, NORMOCEPHALIC - Eye Exam Eye Exam: Normal appearance - ENT Exam ENT Exam: Mucous Membranes Moist - Neck Exam Neck exam: Positive for: Normal Inspection - Respiratory Exam Respiratory Exam: Rales - Cardiovascular Exam Cardiovascular Exam: REGULAR RHYTHM - GI/Abdominal Exam GI & Abdominal Exam: Normal Bowel Sounds, Soft - Extremities Exam Extremities exam: Positive for: normal inspection - Neurological Exam Neurological exam: Alert, Oriented x3 Results - Vital Signs Recent Vital Signs: Last Vital Signs Temp 97.9 F 07/14/17 07:55 Pulse 81 07/14/17 07:55 Resp 20 07/14/17 07:55 BP 140/90 07/14/17 07:55 Pulse Ox 96 07/14/17 07:55 - Labs Result Diagrams: 07/13/17 03:59 07/13/17 19:30 Labs: Laboratory Results - last 24 hr 07/13/17 19:30 Sodium 133 Potassium 3.9 Chloride 96 L Carbon Dioxide 27 Anion Gap 13 BUN 11 Creatinine 0.9 Est GFR ( Amer) > 60 Est GFR (Non-Af Amer) > 60 Random Glucose 147 H Calcium 7.9 L Assessment & Plan (1) Pneumonia Status: Acute Comment: 61 y/o F with 9 day history of fevers/chills/body aches/headaches/ dizziness. - CXR: small opacity at R costophrenic changle may be suggestive of consolidation. - Flu A/B negative. - Legionella negative. - F/u Mycoplasma. - Rocephin/zithromax, jenna (2) Asthma Status: Acute
[2017-07-14] MEDS: Azithromycin 500 MG in Sodium Chloride 0.9% 250 ML IVPB SCH (22:05)
--- NOTE | 2017-07-15 01:01 | PN ---
DATE: SUBJECTIVE: The patient is seen and examined at the bedside. She is still complaining of cough. Denies any new complaints. Denies any shortness of breath. PHYSICAL EXAMINATION: GENERAL: Middle aged female, lying in bed, in no acute distress. VITAL SIGNS: Blood pressure 146/95, pulse 86, respirations 20, temperature 98 degrees Fahrenheit, and O2 saturation 95% on 2 L nasal cannula. HEENT: Pupils are equal, round, and reactive to light and accommodation. No icterus. No pallor. NECK: Supple. No JVD. LUNGS: Bilateral vesicular breath sounds. Bilateral basal rhonchi heard. CVS: S1 and S2 present,r regular. ABDOMEN: Soft, nontender. Bowel sounds present. No guarding. No rigidity. No rebound tenderness noted. SUPERVISOR SEAMING: Alert, awake, and oriented x3. No focal deficits noted. EXTREMITIES: No edema. Palpable peripheral pulses. MEDICATIONS: Include DuoNeb, atenolol 50 mg daily, Zithromax 500 mg daily, Rocephin 1 gm daily, Pepcid 20 mg daily, Robitussin as needed, subcu heparin for DVT prophylaxis, Crestor, prednisone 5 mg daily, and losartan 100 mg daily. LABORATORY DATA: Sodium 133, potassium 3.9, chloride 96, bicarbonate 27, BUN 11, creatinine 0.9, glucose 147, calcium 7.9, hemoglobin A1c 6.8. Legionella negative. Mycoplasma pending. Blood cultures and urine cultures negative so far. ASSESSMENT AND PLAN: Middle aged female with history of hypertension, asthma, arthritis, gastritis, vertigo, admitted for pneumonia, flu negative, on Rocephin and Zithromax with persistent cough. Continue with Robitussin. Continue with nebulizer treatments. Continue with her home medications. Pulmonary consult appreciated. Blood pressure is slightly high. Monitor blood pressure closely. Repeat labs in a.m. Nehemias Michel MD
[2017-07-15] MEDS: Albuterol-Ipratrop 3 mg / 0.5 (3 ml) UD INH SCH ×3 (01:45→13:33)
[2017-07-15 07:16] LABS: ALB/GLOB RATIO 0.9 (1.0-2.1); ALT/SGPT 52 U/L (9-52); AST/SGOT 52 U/L (14-36); BLOOD UREA NITROGEN 7 mg/dL (7-17); CALCIUM 8.3 mg/dl (8.6-10.4); GFR AFRICAN-AMERICAN > 60; GFR NON-AFRICAN AMERICAN > 60
[2017-07-15 07:18] LABS: BASO % 0.4 % (0.0-2.0); EOS % 0.5 % (0.0-4.0); HEMOGLOBIN 11.3 g/dL (11.0-16.0); LYMPH # 3.9 K/uL (1.0-4.3); LYMPH % 45.6 % (20.0-40.0); MEAN CORPUSCULAR HGB CONC 34.5 g/dL (33.0-37.0); MONO # 0.8 K/uL (0.0-0.8); MONO % 8.7 % (0.0-10.0); NEUT # 3.9 K/uL (1.8-7.0); NEUT % 44.8 % (50.0-75.0); NRBC % 0.1 % (0.0-2.0); RBC 3.9 Mil/uL (3.80-5.20); WHITE BLOOD COUNT 8.7 K/uL (4.8-10.8)
[2017-07-15 08:02] VITALS: O2SAT 95
--- NOTE | 2017-07-15 09:54 | CP.PCM.PN ---
Subjective - Date & Time of Evaluation Date of Evaluation: 07/15/17 Time of Evaluation: 10:15 - Subjective Subjective: Discharge summary dictated #[id number] Objective - Vital Signs/Intake and Output Vital Signs (last 24 hours): Temp Pulse Resp BP Pulse Ox 97.6 F 106 H 20 137/79 95 07/15/17 07:00 07/15/17 07:00 07/15/17 07:00 07/15/17 07:00 07/15/17 07:00 - Medications Medications: Current Medications Albuterol/Ipratropium (Duoneb 3 Mg/0.5 Mg (3 Ml) Ud) 3 ml INH RQ6 [facility] Last Admin: 07/15/17 01:45 Dose: 3 ml Atenolol (Tenormin) 50 mg PO DAILY [facility] Famotidine (Pepcid) 20 mg PO DAILY [facility] Last Admin: 07/14/17 09:30 Dose: 20 mg Guaifenesin/Dextromethorphan (Robitussin Dm) 10 ml PO Q6H PRN PRN Reason: Cough and congestion Last Admin: 07/14/17 03:38 Dose: 10 ml Heparin Sodium (Porcine) (Heparin) 5,000 units SC Q8 [facility] Last Admin: 07/15/17 06:16 Dose: 5,000 units Azithromycin 500 mg/ Sodium (Chloride) 250 mls @ 250 mls/hr IVPB Q24H [facility] Last Admin: 07/14/17 22:05 Dose: 250 mls/hr Ceftriaxone Sodium 1 gm/ (Sodium Chloride) 100 mls @ 100 mls/hr IVPB DAILY@ 1630 [facility] Last Admin: 07/14/17 16:49 Dose: 100 mls/hr Potassium Chloride (Potassium Chloride 20 Meq/100 Ml) 20 meq in 100 mls @ 50 mls/hr IVPB ONCE ONE Stop: 07/15/17 11:49 Losartan Potassium (Cozaar) 100 mg PO DAILY [facility] Prednisone (Prednisone Tab) 5 mg PO DAILY [facility] Last Admin: 07/14/17 09:30 Dose: 5 mg Rosuvastatin Calcium (Crestor) 5 mg PO HS [facility] Last Admin: 07/14/17 22:06 Dose: 5 mg - Labs Labs: 07/15/17 06:45 07/15/17 06:45 PT 11.2 SECONDS (9.7-12.2) 07/12/17 23:14 INR 1.0 07/12/17 23:14
[2017-07-15] MEDS ORDERED: Potassium Chloride 20 mEq ER Tab PO ONE (12:30)
--- NOTE | 2017-07-15 14:33 | CP.PCM.PN ---
Subjective - Date & Time of Evaluation Date of Evaluation: 07/15/17 Time of Evaluation: 09:30 - Subjective Subjective: Patient seen and examined at bedside. Patient reports improvement of her fevers , chills, and body aches. She reports difficulty sleeping. Patient is inquiring about discharge. Assessment/Plan 1. Pneumonia - 61 y/o F with 9 day history of fevers/chills/body aches/headaches/ dizziness. - CXR: small opacity at R costophrenic changle may be suggestive of consolidation. - Flu A/B negative - Legionella negative - F/u Mycoplasma - Switch to by mouth antibiotics Objective - Vital Signs/Intake and Output Vital Signs (last 24 hours): Temp Pulse Resp BP Pulse Ox 97.6 F 106 H 20 137/79 95 07/15/17 07:00 07/15/17 07:00 07/15/17 07:00 07/15/17 07:00 07/15/17 07:00 - Medications Medications: Current Medications Albuterol/Ipratropium (Duoneb 3 Mg/0.5 Mg (3 Ml) Ud) 3 ml INH RQ6 [facility] Last Admin: 07/15/17 13:33 Dose: 3 ml Atenolol (Tenormin) 50 mg PO DAILY [facility] Last Admin: 07/15/17 09:56 Dose: 50 mg Famotidine (Pepcid) 20 mg PO DAILY [facility] Last Admin: 07/15/17 09:56 Dose: 20 mg Guaifenesin/Dextromethorphan (Robitussin Dm) 10 ml PO Q6H PRN PRN Reason: Cough and congestion Last Admin: 07/14/17 03:38 Dose: 10 ml Heparin Sodium (Porcine) (Heparin) 5,000 units SC Q8 [facility] Last Admin: 07/15/17 13:16 Dose: 5,000 units Azithromycin 500 mg/ Sodium (Chloride) 250 mls @ 250 mls/hr IVPB Q24H [facility] Last Admin: 07/14/17 22:05 Dose: 250 mls/hr Ceftriaxone Sodium 1 gm/ (Sodium Chloride) 100 mls @ 100 mls/hr IVPB DAILY@ 1630 [facility] Last Admin: 07/14/17 16:49 Dose: 100 mls/hr Losartan Potassium (Cozaar) 100 mg PO DAILY [facility] Last Admin: 07/15/17 09:56 Dose: 100 mg Prednisone (Prednisone Tab) 5 mg PO DAILY [facility] Last Admin: 07/15/17 09:56 Dose: 5 mg Rosuvastatin Calcium (Crestor) 5 mg PO [facility] Last Admin: 07/14/17 22:06 Dose: 5 mg - Labs Labs: 07/15/17 06:45 07/15/17 06:45 PT 11.2 SECONDS (9.7-12.2) 07/12/17 23:14 INR 1.0 07/12/17 23:14 Assessment and Plan (1) Pneumonia Status: Acute (2) Asthma Status: Acute
[2017-07-15 16:15] VITALS: BP 136/88; PULSE 75; RESP 18; TEMP 97.7
== END 2017-07-15 17:08 | disposition home or self-care (01) | DRG 195 ==
LOC: C.ER 11:31 → C.9E 16:05 → C.5S 07-13 05:17 → C.6T 07-15 00:54
PROVIDERS: ADMIT Internal Medicine; ATTEND Internal Medicine
DX: J18.9 Pneumonia, unspecified organism (principal); E86.0 Dehydration; H91.90 Unspecified hearing loss, unspecified ear; I10 Essential (primary) hypertension; J45.909 Unspecified asthma, uncomplicated